=== PATIENT | female | born 1990 | race Two or more races ===

== ENCOUNTER 2016-11-21 00:40 | Emergency (ER) | payer OTHER ==
--- NOTE | ~2016-11-21 | ER ---
PATIENT'S NAME: MED [facility] AGE: 26 Y [address] ROOM: [place] [address] LOCATION: [facility] ADMIT DATE: 11/21/2016 ER/Outpatient Report DISCHARGE DATE: FAMILY PHYSICIAN: Zoey Moreland MD ATTENDING PHYSICIAN: Jairo Anthony Admission date and time documented in the medical record. I saw the patient at 0050 hours. CHIEF COMPLAINT: Epigastric abdominal pain. HISTORY OF PRESENT ILLNESS: The patient is a 26-year-old female, who comes in with acute onset of epigastric pain that started around 2220 this evening. She took a bath, went to bed, woke up with pain at 1020 hours. She had nausea with vomiting. Pain initially just epigastric, then started wrapping around her abdomen, radiating around to her back. No chest pain or shortness of breath. No headache eyes ears, nose, throat, neck, or spine pain. No lightheadedness, dizziness, syncope, or near syncope. No recent colds, coughs, flus, fever, chills, or sweats. No diarrhea. No urinary symptoms. No joint or muscle swelling, redness, or pain. No skin eruptions or rash. No neuro changes, psych issues, or endocrine problems. HOME MEDICATIONS: See attached medication list. ALLERGIES: PERCOCET, CEFDINIR. SOCIAL HISTORY: Nonsmoker, occasional intake of alcohol. SIGNIFICANT PAST MEDICAL HISTORY: Negative. OPERATIONS: x2, tonsillectomy. REVIEW OF SYSTEMS: All systems reviewed by me are negative with the exception of those discussed in the history of present illness. PHYSICAL EXAMINATION: VITAL SIGNS: Temperature 98.9 tympanic, pulse 71, respirations 18, blood PATIENT'S NAME: MED MARK [facility] AGE: 26 Y [address] ROOM: [place] [address] LOCATION: [facility] ADMIT DATE: 11/21/2016 ER/Outpatient Report DISCHARGE DATE: FAMILY PHYSICIAN: Zoey Moreland MD ATTENDING PHYSICIAN: Jairo Anthony pressure 177/98, O2 saturation on room air is 100%. HEAD: Normocephalic. EYES, EARS, NOSE, THROAT: Clear. Mucous membranes moist. NECK: Negative. SPINE: Negative. LUNGS: Clear. No rales, rhonchi, or wheezes. HEART: Regular. Pulses are palpable. No chest wall or ribcage pain to palpation. ABDOMEN: Soft, nondistended. Tender in epigastric, right upper quadrant. No palpable masses. No organomegaly or abnormal mass palpable. No CVA tenderness. No true guarding or rigidity. No rebound tenderness. EXTREMITIES: Intact. NEUROVASCULAR: Intact. SKIN: Clear. No skin eruptions or rash. LABORATORY DATA AND X-RAYS: Procalcitonin was less than 0.05. White count was 8500, 67 segs, 24 lymphs, 6 monos, 2 eos, 1 baso. Hemoglobin is 14.4, hematocrit 43.5, platelet count is 224,000. Pro-time was 10.6, INR 1.0. Lactate was 1.3. CMS was normal. Amylase and lipase were normal. CPK was 216. CK-MB and troponin were normal. CRP was less than 0.29. Ultrasound of the gallbladder showed no gallstones, thickened gallbladder wall or pericholecystic fluid. Duct was normal. See dictated transcribed Radiology report. CT scan of the abdomen and pelvis was negative for free air, free fluid, or any solid organ abnormalities, intra- abdominally or pelvic. CT scan was read by Radiology, see dictated transcribed report. IMPRESSION: Epigastric right upper quadrant abdominal pain, etiology undetermined, most likely is acute gastritis. PLAN: The patient was given IV normal saline and fluids, IV Zofran for nausea, oral GI cocktail, Dilaudid for pain. The patient dismissed home. Observation. Activity as tolerated. Prevacid 30 mg daily, #30. Follow up with personal physician as needed. If pain persists, the patient may need to have a HIDA scan or upper endoscopy. Discussion ensued with the patient concerning my findings and recommendations, she understands. JAIRO ANTHONY MD SDS/modl PATIENT'S NAME: MED MARK [facility] AGE: 26 Y [address] ROOM: [place] [address] LOCATION: ED ADMIT DATE: 11/21/2016 ER/Outpatient Report DISCHARGE DATE: FAMILY PHYSICIAN: Zoey Moreland MD ATTENDING PHYSICIAN: Jairo Anthony /[id number] d: 11/21/16 0357 t: 11/21/16 1812, OUTPATIENT REPORT
[~2016-11-21 00:40] MED LIST: ACETAMINOPHEN325 MG PO; FEOSOL325 MG PO; FOLIC ACID 40400 MCG PO; LANSINOH7 GM TOP; MOTRIN800 MG PO; NORCO 5-325 MG1 TAB PO; NORCO PO; PERCOCET 5-3251 EACH PO; PRENATAL 1+1)(P1 TAB PO; PRILOSEC20 MG PO; SINGULAIR10 MG OR; SINGULAIR10 MG PO; SURFAK240 MG PO; TUMS200 MG PO
[2016-11-21 01:40] LABS: BASOPHIL # 0.1 K/uL (0.0-0.2); BASOPHIL % 0.7 %; EOSINOPHIL # 0.2 K/uL (0.0-0.5); EOSINOPHIL % 2.1 %; HEMOGLOBIN 14.4 g/dL (11.0-15.0); IMMATURE GRANULOCYTE % 0.1 %; LYMPHOCYTE % 23.9 %; MCV 88.1 fl (83.0-98.0); MONOCYTE # 0.5 K/uL (0.0-1.0); MONOCYTE % 6.3 %; MPV 10.7 fl (9.4-12.4); NEUTROPHIL # (ANC) 5.7 K/uL (1.8-7.8); NEUTROPHIL % 66.9 %; NRBC % 0 /100WBC (0-0.00); RDW-CV 14.2 % (11.9-14.6); WBC 8.5 K/uL (4.0-11.0)
[2016-11-21 01:48] LABS: HEMATOCRIT 43.5 % (33.0-46.0); MCH 29.1 pg (27.0-34.0); MCHC 33.1 gm/dL (32.0-36.5); RBC 4.94 M/uL (3.50-5.00)
[2016-11-21 01:49] LABS: PLATELET COUNT 224 K/uL (150-450)
[2016-11-21 02:03] LABS: ALBUMIN 4.1 gm/dL (3.5-5.0); ALK PHOS 71 IU/L (33-138); ALT 40 IU/L (12-78); ANION GAP 14.8 (10.0-19.0); AST 22 IU/L (10-40); BLOOD UREA NITROGEN 15 mg/dL (6-24); CALCIUM 9.5 mg/dL (8.5-10.5); CHLORIDE 110 mMol/L (96-110); CO2 23 mMol/L (22-32); CPK 216 IU/L (21-215); CREATININE 0.8 mg/dL (0.5-1.1); ESTIMATED GFR (MDRD EQUATION) > 60; POTASSIUM 3.8 mMol/L (3.7-5.1); SODIUM 144 mMol/L (135-145); TOTAL BILIRUBIN 0.2 mg/dL (0.0-1.5); TOTAL PROTEIN 7.7 g/dL (6.0-8.4)
[2016-11-21 02:08] LABS: PROTIME 10.6 SECONDS (9.6-11.1)
== END 2016-11-21 03:45 | disposition disaster alternative care site (69) ==
LOC: GMED 00:40
PROVIDERS: Emergency Medicine
DX: R10.13 Epigastric pain (principal); R10.11 Right upper quadrant pain; Z88.8 Allergy status to other drugs, medicaments and biological substances; Z90.89 Acquired absence of other organs; Z98.890 Other specified postprocedural states
CPT/HCPCS: J1170; J2405; J7030; Q9967